=== PATIENT | female | born 1970 | race American Indian/Alaskan Native ===

== ENCOUNTER 2022-01-12 17:45 | Observation (INO) | payer OTHER ==
--- NOTE | 2022-01-12 18:22 | Emergency Department Report ---
ED Allergic Reaction HPI - General Chief complaint: Allergic Reaction Stated complaint: ANAPHYLAXIC REACTION Time Seen by Provider: 01/12/22 18:04 Source: EMS Mode of arrival: Stretcher Limitations: No Limitations - History of Present Illness Initial Comments: Patient is a 51-year-old female presented to the emergency department with complaints of anaphylaxis. Patient presents from a [place] urgent care. She has received epinephrine, Benadryl, Solu-Medrol, famotidine, albuterol and IV fluids. Patient's last dose of epi, third dose was at 1705. She currently states she feels improved. She did note that she had had swelling in her throat and feeling like she could not breathe. Patient does report that she was bitten by a bee earlier in the day at approximately 1 PM. - Related Data Allergies Allergy/AdvReac Type Severity Reaction Status Date / Time acetaminophen [From Tylenol] Allergy Unknown Verified 01/12/22 17:57 ED Review of Systems ROS: Stated complaint: ANAPHYLAXIC REACTION Other details as noted in HPI Constitutional: denies: chills, fever Eyes: denies: eye pain, eye discharge, vision change ENT: denies: ear pain, throat pain Respiratory: shortness of breath. denies: cough, wheezing Cardiovascular: denies: chest pain, palpitations Endocrine: no symptoms reported Gastrointestinal: denies: abdominal pain, nausea, diarrhea Genitourinary: denies: urgency, dysuria, discharge Musculoskeletal: denies: back pain, joint swelling, arthralgia Skin: denies: rash, lesions Neurological: denies: headache, weakness, paresthesias Psychiatric: denies: anxiety, depression Hematological/Lymphatic: denies: easy bleeding, easy bruising ED Past Medical Hx - Past Medical History Previous Medical History?: No ED Physical Exam - General Limitations: No Limitations General appearance: alert, in no apparent distress - Head Head exam: Present: atraumatic, normocephalic - Eye Eye exam: Present: periorbital swelling - ENT ENT exam: Present: normal orophraynx, mucous membranes moist, other (There is no swelling in the airway at this time the tongue appears normal, posterior pharynx is normal) - Neck Neck exam: Present: normal inspection - Respiratory Respiratory exam: Present: normal lung sounds bilaterally. Absent: respiratory distress - Cardiovascular Cardiovascular Exam: Present: regular rate, normal rhythm. Absent: systolic murmur, diastolic murmur, rubs, gallop - GI/Abdominal GI/Abdominal exam: Present: soft, normal bowel sounds - Rectal Rectal exam: Present: deferred - Extremities Exam Extremities exam: Present: normal inspection - Expanded Upper Extremity Exam Left Hand Wrist exam: Present: swelling - Back Exam Back exam: Present: normal inspection - Neurological Exam Neurological exam: Present: alert, oriented X3 - Psychiatric Psychiatric exam: Present: normal affect, normal mood - Skin Skin exam: Present: warm, dry, intact, normal color. Absent: rash ED Course Vital Signs 01/12/22 01/12/22 17:51 18:23 Temperature 99.0 F Pulse Rate 85 91 H Respiratory 16 18 Rate Blood Pressure 136/70 148/71 [Left] O2 Sat by Pulse 98 99 Oximetry - Reevaluation(s) Reevaluation #1: 01/12/22 18:33 I have discussed patient care with [place] doc. They have given permission for patient to be admitted here for observation for anaphylaxis. Reevaluation #2: 01/12/22 20:28 Patient remains stable ahead of admission. ED Medical Decision Making - Lab Data Result diagrams: 01/12/22 18:40 01/12/22 18:40 - Medical Decision Making Patient is a 51-year-old female who presents to the emergency department with complaints of bee sting to the left hand. Patient was seen at an outpatient urgent care, [place] and was given an medication for anaphylaxis including 3 dose s of epinephrine, Benadryl, Solu-Medrol and famotidine as well as IV fluids. Patient here is hemodynamically stable and the swelling in her face has improved. However given that patient received 3 doses of epi I am concerned that she could have rebound of the anaphylaxis and that patient will likely require observation versus transfer to a [place] facility. I have placed a call out to [place]. We plan to monitor patient's closely for any change in facial swelling or blood pressure. Critical care attestation.: If time is entered above; I have spent that time in minutes in the direct care of this critically ill patient, excluding procedure time. ED Disposition Clinical Impression: Anaphylaxis Disposition: ADMITTED INPATIENT Is pt being admited?: No Does the pt Need Aspirin: No Condition: Stable Referrals: PRIMARY CARE, [Primary Care Provider] - 3-5 Days
[2022-01-12 19:01] LABS: Basophils % (Auto) 0.1 % (0.0-1.8); Hematocrit 37.2 % (30.3-42.9); Hemoglobin 12.3 gm/dl (10.1-14.3); Lymphocytes % (Auto) 10.6 % (13.4-35.0); Mean Corpuscular HGB Conc 33 % (30-34); Mean Corpuscular Volume 95 fl (79-97); Monocytes # (Auto) 0.2 K/mm3 (0.0-0.8); Monocytes % (Auto) 2.2 % (0.0-7.3); Platelet Count 244 K/mm3 (140-440); Red Cell Distribution Width 12.5 % (13.2-15.2)
[2022-01-12 19:26] LABS: Alanine Aminotransferase 14 units/L (7-56); Albumin 4.1 g/dL (3.9-5); BUN/Creatinine Ratio 14; Blood Urea Nitrogen 11 mg/dL (7-17); Calcium 8.9 mg/dL (8.4-10.2); Hemolysis Index 6
--- NOTE | 2022-01-12 20:27 | History and Physical Report ---
History of Present Illness Chief complaint: I cannot breathe and my tongue swollen History of present illness: 51 YO Female with No PMH presents to ED for evaluation. Patient reports "I got stung by bee and then I could not breathe". Patient states that while in her home she was stung by bee. Patient subsequently presented to urgent care. Patient treated with epinephrine, Benadryl with worsening symptoms. Patient acknowledges tongue swelling complicated by shortness of breath with observed hoarseness, inability to control oral secretions. Patient subsequently treated with epinephrine, IV Benadryl, Solu-Medrol, famotidine with mild improvement in symptoms. Patient admitted to medical floor due to increased risk of worsening symptoms and for medical stabilization. Patient uses head gestures to deny fev er, chills, chest pain, palpitation, productive cough, skin rash, recent contact, known exposure to COVID-19. No prior admission for review. No medication listed at time of admission for reconciliation. Advanced care planning conducted in ED. Past History Past Medical History: No medical history, other (Reviewed) Past Surgical History: No surgical history, Other (Reviewed) Social history: . denies: smoking, alcohol abuse, prescription drug abuse Family history: hypertension Medications and Allergies Allergies Allergy/AdvReac Type Severity Reaction Status Date / Time acetaminophen [From Tylenol] Allergy Unknown Verified 01/12/22 17:57 Review of Systems Constitutional: no weight loss, no fever, no chills, no sweats Ears, nose, mouth and throat: hoarseness, swelling in mouth, swelling in throat, no ear pain, no tinnitis, no decreased hearing Exam - Constitutional Vitals: Temp Pulse Resp BP Pulse Ox 99.0 F 91 H 18 148/71 99 01/12/22 17:51 01/12/22 18:23 01/12/22 18:23 01/12/22 18:23 01/12/22 18:23 General appearance: Present: mild distress - EENT Eyes: Present: PERRL ENT: hearing intact, clear oral mucosa, oropharyngeal erythema, other (Oropharyngeal edema) - Neck Neck: Present: supple, normal ROM - Respiratory Respiratory effort: normal Respiratory: bilateral: CTA - Cardiovascular Heart Sounds: Present: S1 & S2. Absent: rub, click - Extremities Extremities: pulses symmetrical, No edema Peripheral Pulses: within normal limits - Abdominal General gastrointestinal: Present: soft, non-tender, non-distended, normal bowel sounds Female genitourinary: Present: normal - Integumentary Integumentary: Present: clear, warm, dry - Musculoskeletal Musculoskeletal: gait normal, strength equal bilaterally - Psychiatric Psychiatric: appropriate mood/affect, intact judgment & insight - Neurologic Neurologic: CNII-XII intact, moves all extremities Results - Labs CBC & Chem 7: 01/12/22 18:40 01/12/22 18:40 Labs: Abnormal lab results 01/12/22 01/12/22 Range/Units 18:40 18:40 RDW 12.5 L (13.2-15.2) % Lymph % (Auto) 10.6 L (13.4-35.0) % Lymph # (Auto) 1.0 L (1.2-5.4) K/mm3 Seg Neutrophils % 87.1 H (40.0-70.0) % Seg Neutrophils # 7.9 H (1.8-7.7) K/mm3 Carbon Dioxide 20 L (22-30) mmol/L Glucose 167 H (65-100) mg/dL Assessment and Plan - Patient Problems (1) Anaphylaxis Current Visit: Yes Status: Acute Qualifiers: Encounter type: initial encounter Qualified Code(s): T78.2XXA - Anaphylactic shock, unspecified, initial encounter Plan to address problem: Patient mated to medical floor and treated with IV steroid therapy, Benadryl, famotidine, and routine monitoring. (2) DVT prophylaxis Current Visit: Yes Status: Acute Plan to address problem: SCD to bilateral lower extremities while in bed (3) Advance care planning Current Visit: Yes Status: Acute Plan to address problem: Disease education done, care plan discussed, diagnosis discussed, prognosis discussed, patient knowledges understanding agreement care plan, +30 minutes. (4) Preventative health care Current Visit: Yes Status: Acute Plan to address problem: Patient counseled regarding maintaining epinephrine autoinjectors at her home. Risk factor reduction, outpatient follow-up with primary care physician for all age and risk factor appropriate screening test. +30 minutes.
[2022-01-12] MEDS ORDERED: MORPHINE 4 MG/1 ML INJ IV PRN (21:34)
[2022-01-12] MEDS ORDERED: MORPHINE 2 MG/1 ML INJ IV PRN (21:34)
[2022-01-12] MEDS ORDERED: ONDANSETRON 4 MG/2 ML INJ IV PRN (21:34)
[2022-01-12] MEDS ORDERED: IBUPROFEN 600 MG TAB PO PRN (21:34)
[2022-01-12] MEDS ORDERED: MAGNESIUM HYDROXIDE (MOM) ORAL LIQD UDC PO PRN (21:34)
[2022-01-12] MEDS ORDERED: SODIUM CHLORIDE 0.9% 1000 ML 1,000 ML IV SCH (21:45)
[2022-01-12] MEDS: HEPARIN 5,000 UNIT/1 ML VIAL SUB-Q SCH (22:48)
[2022-01-13 05:52] LABS: Basophils % (Auto) 0.5 % (0.0-1.8); Hematocrit 34.8 % (30.3-42.9); Hemoglobin 11.5 gm/dl (10.1-14.3); Lymphocytes # (Auto) 1.2 K/mm3 (1.2-5.4); Lymphocytes % (Auto) 19.9 % (13.4-35.0); Mean Corpuscular HGB Conc 33 % (30-34); Mean Corpuscular Volume 95 fl (79-97); Monocytes # (Auto) 0.2 K/mm3 (0.0-0.8); Monocytes % (Auto) 2.7 % (0.0-7.3); Platelet Count 226 K/mm3 (140-440); Red Blood Count 3.65 M/mm3 (3.65-5.03); Red Cell Distribution Width 12.3 % (13.2-15.2)
[2022-01-13 06:12] LABS: Blood Urea Nitrogen 10 mg/dL (7-17); Calcium 8.9 mg/dL (8.4-10.2); Hemolysis Index 4
[2022-01-13 06:13] LABS: BUN/Creatinine Ratio 17
[2022-01-13] MEDS: HEPARIN 5,000 UNIT/1 ML VIAL SUB-Q SCH (06:26)
--- NOTE | 2022-01-13 10:23 | Discharge Summary ---
Providers - Providers Date of Admission: 01/12/22 21:34 Date of discharge: 01/13/22 Attending physician: THELMA DONAHUE MD Primary care physician: WEATHER ALGORITHM SCIENTIST Hospitalization Reason for admission: Anaphylaxis after bee sting Condition: Stable Hospital course: 51-year-old female with no significant past medical history who presented after bee sting. She was stung by bee and developed a swollen tongue and shortness of breath. She was treated initially with epinephrine, IV Benadryl Solu-Medrol and famotidine. Her symptoms improved and she was observed overnight. Once stable, patient was discharged home with instructions to follow-up with allergy and immunology outpatient. Disposition: 01 HOME / SELF CARE / HOMELESS Final Discharge Diagnosis (Prints w/discharge instructions): Anaphylaxis due to bee sting venom Time spent for discharge: 20 minutes Core Measure Documentation - Palliative Care Palliative Care/ Comfort Measures: Not Applicable - Core Measures Any of the following diagnoses?: none Exam - Physical Exam Narrative exam: GENERAL: Well-developed well-nourished. In no acute distress. HEENT: Normal appearance of tongue. Uvula midline. Symmetric appearance of face and no swelling noted. NECK: Supple. CHEST/LUNGS: CTAB on room air HEART/CARDIOVASCULAR: RRR. No murmur, rubs or gallops appreciated. ABDOMEN: +BS. NT/ND. SKIN: No rashes noted. NEURO: No focal motor deficit. Follows all commands. MUSCULOSKELETAL: No joint effusion EXTREMITIES: No cyanosis, clubbing or edema. PSYCH: Cooperative. - Constitutional Vitals: Temp Pulse Resp BP Pulse Ox 98.6 F 60 16 114/72 98 01/13/22 08:30 01/13/22 08:30 01/13/22 08:30 01/13/22 08:30 01/13/22 06:00 Plan Care Plan Goals: Please have your primary care provider to refer you to an car rental clerk. Please take all medications we have prescribed to you. Should your symptoms return, please go to the nearest ED. You have been prescribed an epi-pen. Please carry this with you at all times and use if your symptoms return or you are stung again. Follow up with: PRIMARY CARE, [Primary Care Provider] - 3-5 Days Prescriptions: EPINEPHrine 0.3 mg IJ ONCE PRN 30 Days #1 each PRN Reason: Anaphylaxis Prednisone [predniSONE 10 mg (6-Day Pack, 21 Tabs)] 10 mg PO .TAPER 6 Days #1 each
[2022-01-13 12:36] VITALS: BP 121/67
--- NOTE | 2022-01-13 17:58 | Electrocardiograph Report ---
[facility] Test Date: 2022-01-13 Test Time: 08:34:20 Pat Name: NIDIA VICK Department: Room: A474 1 Gender: F Health Policy Nurse: JUANCHO : 1970 Requested By: BELGICA BOYER Order Number: [id number] Reading MD: Yovani Seo Measurements Intervals Morris Rate: 46 P: 23 ID: [id number] QRS: 48 QRSD: 81 T: -5 QT: 436 QTc: 382 Interpretive Statements Marked sinus bradycardia No previous ECG available for comparison Electronically Signed On 01-13-2022 17:58:27 EDT by Yovani Seo
== END 2022-01-13 16:45 | disposition home or self-care (01) ==
LOC: ED 17:45 → 4A 21:34 → INTOOBSV 21:34 → 4A 01-13 01:02
PROVIDERS: ADMIT Internal Medicine; ATTEND Student in an Organized Health Care Education/Training Program
DX: T63.441A Toxic effect of venom of bees, accidental (unintentional), initial encounter (principal); T78.2XXA Anaphylactic shock, unspecified, initial encounter; F17.210 Nicotine dependence, cigarettes, uncomplicated; Z79.899 Other long term (current) drug therapy
CPT/HCPCS: 36415; 80048; 80053; 85025; 93005; 96372; 99284; 99406; G0378; J1644; J7030